=== PATIENT | male | born 1950 | race Caucasian/White ===

== ENCOUNTER → 2017-07-07 | Day surgery (SDC) | payer OTHER ==
[~2017-07-07] MED LIST: ACETAMINOPHEN 1000 MG/100 ML 100 ML IV ONE; ARTIFICIAL TEARS OPTH OINT 3.5 APPLIC/3.5 GM TUBO ONE; BALANCED SALT SOLN OPHT IRRIG 15 ML BTL ONE; LACTATED RINGER'S 1000 ML INJ 1,000 ML ONE; MIDAZOLAM HCL 2 MG/2 ML VIAL ONE; ONDANSETRON HCL 4 MG/2 ML VIAL IV PUSH ONE; PROPOFOL 200 MG/20 ML AMP IV ONE; ceFAZolin INJ 1,000 MG VIAL ONE
--- NOTE | 2017-07-07 12:17 | TN ---
cc: KIKE GUAJARDO M.D. DATE OF SURGERY 07/07/2017 PREOPERATIVE DIAGNOSIS Basal cell carcinoma located on the right medial canthus resulting in primary defect. PROCEDURE 1. Wide local excision with a primary defect of 2.5 x 2 cm reconstructed with a full-thickness skin graft donor site right neck. 2. Clinical basal cell carcinoma right posterior ear at the sulcus area resulting in a primary defect of 2.5 x 1.5 cm. This required an intermediate repair of 2.5 cm. 3. Two biopsies on the center of right back and left medial lateral back The specimens were sent to pathology for a grand total of a centimeter on the medial lesion and a half centimeter on the lateral lesion. SURGEON Kike Guajardo MD ANESTHESIA LMA general, plus a total of approximately 10-15 cc of 1% lidocaine with epinephrine. ESTIMATED BLOOD LOSS Minimal COMPLICATIONS None DRAINS None PROCEDURE He was properly consented, marked and anesthetized. The skin was sterilized with Microcyn and sterile draping applied. We proceeded to perform a wide local excision of the medial canthal area which was sent to pathology for frozen section which indeed shows although a close proximity, no evidence of further involvement. Either way, I sent some specimens for zhang dissection to assure full excision. I proceeded to perform the harvest of the full-thickness skin graft from the right neck. It was properly defatting and the dermis was also thinned down to match the inner canthal skin. The defect is 2-1/2 x 2 cm. This was properly secured utilizing 5-0 chromic suture and a tie-over 4-0 chromic suture. A 5-0 Prolene suture cross-stitch was placed medially to secure and prevent further motion of the graft. The posterior right ear lesion was properly ellipsed out, undermined and layered closure utilizing 3-0 Monocryl suture and a 5-0 Prolene suture. The donor site for the graft was closed in multiple 2-0 Monocryl suture layers in the dermis and subcu and then Mastisol was applied and Steri-Strips. Finally, two biopsies on the back were preformed and then electrocauterized at the base and a Band-Aid applied for a right back biopsy of 1 cm medially and left medial lateral back of 0.5 cm. Specimens were sent to pathology and we await the results. Overall, the patient tolerated the procedure well. He was awakened and extubated in the operating room and transferred back to the postanesthesia care unit in stable condition. No complications appreciated. The patient tolerated the procedure fairly well. MD VIMAL Mendoza/GEOFFREY /11:38 AM /12:02 PM LEFTY
== END | disposition home or self-care (01) ==
LOC: ESDC 08:16
PROVIDERS: ATTEND Plastic Surgery
DX: C44.112 Basal cell carcinoma of skin of right eyelid, including canthus (principal); C44.212 Basal cell carcinoma of skin of right ear and external auricular canal; L91.8 Other hypertrophic disorders of the skin
CPT/HCPCS: 00300; 11420; 11421; 11643; 12052; 15260; 88305; 88331; J0131; J0690; J2250; J2405; J3010; J7120